=== PATIENT | male | born 1955 | race Caucasian/White ===

== ENCOUNTER → 2018-01-27 | Outpatient (CLI) | payer OTHER | END | disposition home or self-care (01) | LOC: CT 12:17 | DX: I25.10 Atherosclerotic heart disease of native coronary artery without angina pectoris (principal); K44.9 Diaphragmatic hernia without obstruction or gangrene; K80.20 Calculus of gallbladder without cholecystitis without obstruction; N20.0 Calculus of kidney; R91.1 Solitary pulmonary nodule | CPT/HCPCS: 71250 ==

== ENCOUNTER → 2018-10-09 | Outpatient (CLI) | payer OTHER ==
[~2018-10-09] MED LIST: CONTRAST GIVEN. MC PRN; IOHEXOL 240 MG/ML 50ML VIAL. PO ONE; IOHEXOL 300 MG/ML 100ML VIAL. IV ONE
--- NOTE | 2018-10-09 14:26 | RAD ---
CT of the abdomen and pelvis with contrast, 10/09/2018: HISTORY: Abdominal pain Multidetector CT imaging was performed following oral and IV administration of contrast. There is minimal atelectasis and/or scarring posteriorly in the lung bases. A large hiatal hernia is present with the majority of the stomach lying above the level the diaphragmatic hiatus. Several coronary artery calcifications are noted. No hepatic abnormality is seen. Several dense gallstones are present in the gallbladder neck. The gallbladder hawkins are not thickened and there is no pericholecystic edema. No pancreatic abnormality is detected. The spleen is of normal size. No renal abnormality is detected. There is mild calcific plaquing of the abdominal aorta. There is mild aneurysmal dilatation of the infrarenal abdominal aorta which measures 3.4 x 3.6 cm. The iliac arteries are quite tortuous. No abdominal or pelvic adenopathy is seen. A right hip prosthesis is in place with associated artifacts degrading image quality in the lower pelvis. The prostate gland is mildly enlarged. There is a moderate amount stool scattered throughout the colon. The bowel loops are not dilated. There are surgical clips in the right lower quadrant. No free air or free fluid is evident in the abdomen or pelvis. There is a periumbilical hernia near the midline containing only fat. No bowel herniation is evident. Moderate multilevel degenerative changes are present in the spine. There is bilateral spondylolysis at L5 with a grade 2 spondylolisthesis at L5-S1. There are severe degenerative disc disease at that with moderate bilateral foraminal and central spinal stenosis. IMPRESSION: 1. Cholelithiasis. 2. Large hiatal hernia. 3. Small infrarenal abdominal aortic aneurysm. 4. Fat-containing paraumbilical ventral hernia. 5. Nonspecific prostatic enlargement. 6. Bilateral spondylolysis at L5 with moderate spondylolisthesis at L5-S1. PQRS Compliance Statement: One or more of the following individualized dose reduction techniques were utilized for this examination: 1. Automated exposure control 2. Adjustment of the mA and/or kV according to patient size 3. Use of iterative reconstruction technique Electronically signed by: Lester Palm MD (10/09/2018 2:23 PM) [facility]
== END | disposition home or self-care (01) ==
LOC: CT 13:06
DX: K80.20 Calculus of gallbladder without cholecystitis without obstruction (principal); K44.9 Diaphragmatic hernia without obstruction or gangrene; I71.4 Abdominal aortic aneurysm, without rupture; K43.9 Ventral hernia without obstruction or gangrene; N40.0 Benign prostatic hyperplasia without lower urinary tract symptoms; M43.17 Spondylolisthesis, lumbosacral region; M51.36 Other intervertebral disc degeneration, lumbar region; M48.061 Spinal stenosis, lumbar region without neurogenic claudication; K42.9 Umbilical hernia without obstruction or gangrene
CPT/HCPCS: 74177; Q9966; Q9967

== ENCOUNTER → 2018-10-29 | Day surgery (SDC) | payer OTHER ==
[~2018-10-29] MED LIST changes: +BUPIVAC MPF-EPI 0.5%-1:200000 30 ML VIAL. INJ ONE; +BUPIVACAINE MPF 0.5% 30 ML VIAL. ONE; -CONTRAST GIVEN. MC PRN; +DESFLURANE 31 TO 60 MINUTES IH ONE; +DEXAMETHASONE SOD PHOS 20 MG/5 ML VIAL. ONE; +GLUCAGON,HUMAN RECOMBINANT 1 MG/ML VIAL. ONE; +GLYCOPYRROLATE 1 MG/5 ML VIAL. ONE; +HYDROmorphone 2 MG/ML VIAL IV PRN; -IOHEXOL 240 MG/ML 50ML VIAL. PO ONE; -IOHEXOL 300 MG/ML 100ML VIAL. IV ONE; +IOHEXOL 300 MG/ML 100ML VIAL. ONE; +IV RINGERS,LACTATED 1000ML 1,000 ML IV SCH; +KETOROLAC 30 MG/ML INJ FOR OR. INJ ONE; +LEVO100T5 PO; +LIDOCAINE 1% PF 2 ML VIAL. ID PRN; +LIDOCAINE 2% PF Vial for OR 5 ML VIAL. ONE; +MORPHINE SULFATE 2 MG/ML VIAL. IV PRN; +MULT1TAB52 PO; +NEOSTIGMINE METHYLSULFATE 5 MG/5 ML SYRINGE. ONE; +OMEP20TA8 PO; +ONDANSETRON PF 4 MG/2 ML VIAL. IV PRN; +ONDANSETRON PF 4 MG/2 ML VIAL. ONE; +OXYC1TAB15 PO; +PROCHLORPERAZINE 10 MG/2 ML VIAL. IV PRN; +PROPOFOL 20 ML IV ONE; +ROCURONIUM 50 MG/5 ML VIAL. ONE; +SAW450CA7 PO; +SURGICEL HEMOSTAT 2X3 EACH. ONE; +SURGICEL HEMOSTAT 4X8 EACH. TP ONE; +fentaNYL PF VIAL 100 MCG/2 ML VIAL IV PRN; +fentaNYL PF VIAL 100 MCG/2 ML VIAL ONE; +oxyCODONE/APAP 5/325 1 TAB TABLET PO ONE
[2018-10-29 09:18] LABS: BASO # 0.1 x10^3/uL (0.0-0.2); BASO % 1 % (0-3); EOS # 0.2 x10^3/uL (0.0-0.7); EOS % 4 % (0-3); HEMATOCRIT 44.7 % (39.0-53.0); HEMOGLOBIN 15.1 g/dL (13.0-17.5); LYMPH # 1.3 x10^3/uL (1.0-4.8); LYMPH % 22 % (24-48); MEAN CORPUSCULAR HEMOGLOBIN 34 pg (25-35); MEAN CORPUSCULAR HGB CONC 34 g/dL (31-37); MEAN CORPUSCULAR VOLUME 101 fL (79-100); MONO # 0.5 x10^3/uL (0.0-1.1); MONO % 8 % (0-9); NEUT % 66 % (31-73); PLATELET COUNT 289 x10^3/uL (140-400); RED BLOOD COUNT 4.42 x10^6/uL (4.30-5.70); WHITE BLOOD COUNT 6.1 x10^3/uL (4.0-11.0)
[2018-10-29 09:27] LABS: CALCIUM 8.9 mg/dL (8.5-10.1); GFR 75.5
[2018-10-29 09:32] LABS: ALBUMIN 3.7 g/dL (3.4-5.0); TOTAL BILIRUBIN 0.7 mg/dL (0.2-1.0)
--- NOTE | 2018-10-29 14:10 | PDOC ---
BRIEF OPERATIVE NOTE Date: Oct 29, 2018 Pre-Op Diagnosis symptomatic cholelithiasis Post-Op Diagnosis same, adhesions Procedure Performed l/s cholecystectomy KENNETH Surgeon Jose G [employer] [facility] Anesthesia Type: General Blood Loss 25cc IV Fluid 500cc Specimens Obtained GB Findings supple GB, unable to get grams 2/2 small caliber cystic duct and anatomy Complications none Operative Note Wk # [id number] KRISHNA RIVERA MD Oct 29, 2018 14:10
--- NOTE | 2018-10-29 14:11 | DISCH ---
DISCHARGE INSTRUCTIONS Condition on Discharge Condition on Discharge: Stable Activity After Discharge Activity Instructions for Disc: Activity as tolerated, Avoid exertion Driving Instructions after Dis: Do not drive (3-4 days) Diet after Discharge Diet after Discharge: Regular Wound Incision Care Wound/Incision Care: Ice to area for comfort Other wound/incision instructi: march shower Friday Follow-Up Follow up with: Jose G next week, call Friday AM with ISAIAH output KRISHNA RIVERA MD Oct 29, 2018 14:11
[2018-10-29] MEDS: fentaNYL PF VIAL 100 MCG/2 ML VIAL IV PRN ×4 (14:25→15:35)
--- NOTE | 2018-10-29 14:31 | OP ---
DATE OF SURGERY: 10/29/2018 PREOPERATIVE DIAGNOSIS: Symptomatic cholelithiasis. POSTOPERATIVE DIAGNOSES: Symptomatic cholelithiasis, with adhesions from previous procedures. OPERATION: Laparoscopic cholecystectomy and lysis of adhesions. SURGEON: Francisco Rivera MD. ACTIVE DIRECTORY SYSTEMS ADMINISTRATOR: SHERRON Merida. ANESTHESIA: General endotracheal. ESTIMATED BLOOD LOSS: 25 mL. IV FLUID: 500. INDICATIONS: The patient is a 63-year-old with postprandial epigastric pain and stones, brought for cholecystectomy. OPERATIVE FINDINGS: There were omental adhesions in the upper abdomen from previous abdominal surgeries. The gallbladder was supple and had omental adhesions enveloping it. Visual inspection of the remainder of the abdomen failed to reveal obvious abnormalities. DESCRIPTION OF PROCEDURE: The patient was brought to the operating suite, given a general endotracheal anesthetic and the abdomen prepped and draped in usual sterile fashion. A 0.5% Marcaine with epinephrine was used to infiltrate the skin and subcutaneous tissue in the location of the lateral port site away from the abdominal scarring in an attempt to gain access into the abdominal cavity. We were able to place a 5 mm Visiport safely and pneumoperitoneum established. Camera inserted and under direct vision, the midclavicular port was placed. This allowed lysis of adhesions from the upper abdomen with the LigaSure, being careful to avoid any bowel. This then allowed us to place the camera port to the left of the midline and the epigastric port, both under direct vision away from any bowel. With the table in reverse Trendelenburg rolled to the left, the gallbladder was retracted superolaterally after taking down some adhesions from the liver. The cystic duct and cystic artery were identified. Attempts for cholangiogram were unsuccessful due to the small area of the patient's anatomy and a very small caliber cystic duct. As a result, it was clipped and divided. The cystic duct was clipped and divided. The gallbladder was freed from the bed with cautery dissection and placed in an EndoCatch bag. Hemostasis obtained in the fossa with cautery and a small piece of Surgicel. No evidence of bile leak was seen. Gallbladder delivered through the epigastric incision. Epigastric incision closed with interrupted 0 Vicryl suture. Intra-abdominal pressure decreased to 6 cm of water. No bleeding from the epigastric port site or the midclavicular port site after their removal. Abdomen decompressed, camera slowly removed, no bleeding seen. Skin incisions closed with subcuticular 4-0 Monocryl. Steri-Strips and sterile dressings applied. The patient was awakened from his anesthetic and taken to the recovery room in satisfactory condition. FRANCISCO RIVERA MD DR: ZACHARY/rommel JOB#: [id number] / [id number]
[2018-10-29 16:11] VITALS: BP 119/77
== END | disposition home or self-care (01) ==
LOC: SURG 08:26
PROVIDERS: ATTEND Surgery
DX: K80.50 Calculus of bile duct without cholangitis or cholecystitis without obstruction (principal); N40.0 Benign prostatic hyperplasia without lower urinary tract symptoms; J45.909 Unspecified asthma, uncomplicated; K21.9 Gastro-esophageal reflux disease without esophagitis; M19.90 Unspecified osteoarthritis, unspecified site; E03.9 Hypothyroidism, unspecified; M48.061 Spinal stenosis, lumbar region without neurogenic claudication; Z79.899 Other long term (current) drug therapy; Z98.890 Other specified postprocedural states; Z96.652 Presence of left artificial knee joint
CPT/HCPCS: 36415; 47562; 80048; 82040; 82247; 85025; J0690; J1100; J1885; J2001; J2405; J2704; J2710; J3010; J3490; Q9967; A7015; J1610; J7030